=== PATIENT | male | born 1960 | race Caucasian/White ===

== ENCOUNTER 2019-07-14 23:00 | Inpatient (IN) ==
[~2019-07-14 23:00] MED LIST: DUONEB (A & A) INH ONE; MAGNESIUM SULFATE 1 GM/D5W 1 GM/100 ML IVPB IV ONE; SOLU-MEDROL IV ONE
--- NOTE | 2019-07-14 23:10 | PROVIDER DOCUMENTATION ---
This chart was entered by Hanny Santacruz Scribe, acting as scribe for Willard Shabazz MD. HPI-Respiratory General - General Chief Complaint: Shortness of Breath Stated Complaint: COPD SOB Time Seen by Provider: 07/14/19 22:49 Source: patient Allergies/Adverse Reactions: Patient Allergies Allergy/AdvReac Type Severity Reaction Status Date / Time codeine Allergy ITCHING Verified 07/14/19 22:56 levofloxacin [From Levaquin] Allergy RASH Verified 07/14/19 22:56 Penicillins Allergy ITCHING Verified 07/14/19 22:56 Home Medications: Home Medication List Medication Instructions Recorded Confirmed Last Taken Type Temazepam [Restoril] 30 mg PO HS PRN 11/25/14 07/15/19 11/24/14 History Albuterol [Albuterol Neb] 2.5 mg INH RTQ4H neb 10/24/17 07/15/19 Unknown Rx Azithromycin [Zithromax] 250 mg PO DAILY #6 tab 07/13/19 07/15/19 Unknown Rx Methylprednisolone [Medrol Dosepak] 4 mg PO DIRECTED #1 pkg 07/13/19 07/15/19 Unknown Rx Levothyroxine [Synthroid] 75 microgm PO DAILY 07/15/19 07/15/19 Unknown History - History of Present Illness-Resp Nature of Presenting Problem: pt is a 58 yr old male presenting via EMS with worsening 3 day complaint of shortness of breath, wheezing and chest tightness. pt was seen here for same yesterday, improvement noted with oxygen and breathing tx enroute by EMS Quality of Pain: reports: tightness Severity in ED: reports: moderate Onset/Duration: reports: 3 days ago Timing: reports: changing over time, getting worse Exposure: reports: unknown cause Cough Quality/Degree: reports: moderate Episode Frequency: frequent episodes Current Respiratory Medication Therapy: Initiated see nurses note Modifying Factors: improves with: albuterol nebulizer (improves), lying down (worsens), oxygen (improves) Associated Symptoms: reports: chest pain/soreness, cough, shortness of breath, wheezing. denies: fever/chills Similar Symptoms Previously?: Yes Recently seen or treated by another doctor?: Yes Review of Systems - Adult - REVIEW OF SYSTEMS - ADULT Constitutional: denies: see HPI, fever Eyes: reports: no symptoms reported Ears, Nose, Mouth & Throat: reports: no symptoms reported Cardiovascular: reports: chest pain. denies: palpitations, syncope Respiratory: reports: cough, dyspnea on exertion, pleurisy, shortness of breath, wheezing Gastrointestinal: denies: abdominal pain, nausea Genitourinary: reports: no symptoms reported Musculoskeletal: denies: back pain, joint pain, muscle aches Integumentary: reports: no symptoms reported Neurological: denies: dizziness/vertigo, headache/migraines, syncope Psychiatric: reports: no symptoms reported Endocrine: reports: no symptoms reported Hematologic/Lymphatic: reports: no symptoms reported Allergic/Immunologic: reports: no symptoms reported All Other Systems: Reviewed and Negative Past History - Adult - PAST MEDICAL HISTORY-ADULT Review of Records: reports: Old Records Reviewed, Nursing Assessment Review, Medications Reviewed, Social history reviewed & non-contributory. Major Childhood Illnesses: reports: denies history Cardiovascular: reports: denies history Respiratory: reports: COPD, pneumonia, tuberculosis Gastrointestinal: reports: denies history Obstetrical/Gynecological: reports: denies history Genitourinary: reports: denies history Musculoskeletal: reports: denies history Neurological: reports: denies history Endocrine/Immune: reports: denies history Other Conditions: reports: denies history - PRIOR SURGERIES/PROCEDURES Surgical/Procedure History: reports: none - PRIOR HOSPITALIZATIONS Prior Hospitalizations: reports: none - IMMUNIZATION STATUS Childhood Immunizations: UTD Flu Vaccine: See Nurse Assessment - FAMILY HISTORY Family History: reviewed, not pertinent - SOCIAL HISTORY Smoking: cigarettes Provider spent 3-5 mins advising pt. on dangers of tobacco.: Discussed manners to quit use, and f/u contacts for add'l counseling. Substance Use: alcohol Living Situation: alone Physical Exam-General - PHYSICAL EXAM-ADULT Initial Vital Signs Reviewed: Yes - CONSTITUTIONAL General Appearance: alert, no apparent distress - EYES Eyes: other (clear) - HEAD, EARS, NOSE, MOUTH & THROAT HENMT: moist mucous membranes - NECK Neck: supple - RESPIRATORY Respiratory: decreased breath sounds, wheezing - CARDIOVASCULAR Cardiovascular: regular rate, rhythm - GASTROINTESTINAL (ABDOMEN) Abdominal Exam: normal bowel sounds, non tender, soft - LYMPHATIC Lymphatic: no adenopathy - MUSCULOSKELETAL Back Exam: normal inspection, no CVA tenderness, no vertebral tenderness Extremity: normal range of motion, non-tender Peripheral Pulses: radial (R): 2+, radial (L): 2+ - SKIN Integumentary: normal color, normal turgor - NEUROLOGIC Neurologic: grossly normal - PSYCHIATRIC Psych/Mental Status: oriented x 3, anxious Progress - PLAN OF CARE/RESULTS Progress/Plan/Lab Results: Vital Signs - 8 hr 07/14/19 22:52 07/14/19 22:59 07/14/19 23:32 Temperature 97.8 F Pulse Rate 94 H 103 H Respiratory Rate 21 27 H Blood Pressure 161/114 O2 Sat by Pulse Oximetry 98 97 96 Laboratory Results - last 24 hr 07/14/19 07/14/19 07/14/19 22:50 23:00 23:00 WBC 13.55 H RBC 4.61 L Hgb 11.9 L Hct 37.5 L MCV 81.3 MCH 25.8 L MCHC 31.7 L RDW Std Deviation 16.0 H Plt Count 261 MPV 10.7 H Immature Gran % (Auto) 0.1 Neut % (Auto) 88.5 H Lymph % (Auto) 5.5 L [place] % (Auto) 5.8 Eos % (Auto) 0.0 Baso % (Auto) 0.1 Immature Gran # (Auto) 0.02 Neut # (Auto) 12.00 H Lymph # (Auto) 0.74 L [place] # (Auto) 0.78 H Eos # (Auto) 0.00 Baso # (Auto) 0.01 Specimen Type ARTERIAL Sample Site R BRACHIAL pH 7.34 L pCO2 61 H* pO2 73 HCO3 29.0 H Base Excess 5.4 H Oxyhemoglobin 91.8 L ABG O2 Sat (Calculated) 16.6 ABG O2 Saturation 96.6 ABG Carboxyhemoglobin 3.60 H ABG Methemoglobin 1.3 Narayan Test NO A-a O2 Difference 50.0 Total Hemoglobin 12.8 Lactate 0.90 Liter Flow 2.0 Blood Gas Modality CANNULA FiO2 % 28.0 Sodium Potassium Chloride Carbon Dioxide Anion Gap BUN Creatinine Estimated GFR/1.73 m2 BUN/Creatinine Ratio Glucose Calculated Osmolality Calcium Creatine Kinase Troponin T < 0.010 Rsl-P-Ermtaacoksm Pept 07/14/19 07/14/19 07/14/19 23:00 23:00 23:00 WBC RBC Hgb Hct MCV MCH MCHC RDW Std Deviation Plt Count MPV Immature Gran % (Auto) Neut % (Auto) Lymph % (Auto) [place] % (Auto) Eos % (Auto) Baso % (Auto) Immature Gran # (Auto) Neut # (Auto) Lymph # (Auto) [place] # (Auto) Eos # (Auto) Baso # (Auto) Specimen Type Sample Site pH pCO2 pO2 HCO3 Base Excess Oxyhemoglobin ABG O2 Sat (Calculated) ABG O2 Saturation ABG Carboxyhemoglobin ABG Methemoglobin Narayan Test A-a O2 Difference Total Hemoglobin Lactate Liter Flow Blood Gas Modality FiO2 % Sodium 134 L Potassium 4.8 Chloride 94 L Carbon Dioxide 29 Anion Gap 10 BUN 10 Creatinine 0.5 L Estimated GFR/1.73 m2 > 60 BUN/Creatinine Ratio 20 Glucose 141 H Calculated Osmolality 270 Calcium 9.2 Creatine Kinase 97 Troponin T Qty-S-Otpvhzfnuxq Pept 222 H Orders Category Date Time Status Admit - [facility] Routine AdmDCTranf 07/14/19 23:44 Active Activity - Strict Bedrest ORDERED Care 07/14/19 23:45 Active Resuscitation Status Routine Care 07/14/19 23:44 Ordered Vital Signs Order Q 4-HR ASSESS Care 07/14/19 23:45 Active Z-Document. for Tele Applied ORDERED Care 07/14/19 23:47 Completed Heart Healthy Diet Diet 07/14/19 23:45 Active CHEST-PORTABLE [RAD] Stat Exams 07/14/19 23:36 Taken ABG [RESP] Routine Lab 07/14/19 22:50 Completed BMP [BASIC METABOLIC PANEL] [CHEM] Stat Lab 07/14/19 23:00 Completed BNP [PRO B-NATRIURETIC PEPTIDE] Stat Lab 07/14/19 23:00 Completed CBC WITH ELECTRONIC DIFF [HEME] Stat Lab 07/14/19 23:00 Completed CK PROFILE [SP CHEM] Stat Lab 07/14/19 23:00 Completed TROPONIN T Stat Lab 07/14/19 23:00 Completed Albuterol 2.5MG/Ipratrop 0.5MG [Duoneb (A & A)] Med 07/14/19 22:54 Discontinued 3 ml INH NOW ONE Albuterol 2.5MG/Ipratrop 0.5MG [Duoneb (A & A)] Med 07/15/19 03:30 Active 3 ml INH RTQ4H CefTRIAXONE [Rocephin] 1 gm Med 07/14/19 23:42 Discontinued 0.9% Sodium Chloride Inj [Ns] 50 ml IV NOW Magnesium Sulfate 1 gm/D5w Med 07/14/19 22:57 Discontinued 1 gm in 100 ml IV NOW Methylprednisolone Sod Succ [Solu-Medrol] Med 07/14/19 22:55 Discontinued 125 mg IV NOW ONE Methylprednisolone Sod Succ [Solu-Medrol] Med 07/15/19 05:00 Active 125 mg IV Q6H Aerosol Treatments Routine Oth 07/14/19 22:54 Completed Aerosol Treatments Routine Oth 07/14/19 23:46 Active Aerosol Treatments Stat Oth 07/14/19 22:54 Completed Aerosol Treatments Stat Oth 07/14/19 23:46 Active Oxygen Device Stat Oth 07/14/19 22:57 Active Telemetry [OM.EQ] Routine Oth 07/14/19 23:47 Active EKG [EKG] Stat Ther 07/14/19 22:59 Ordered Transfer/Admit Order [TRANSFER] Routine Transfer 07/14/19 23:46 Completed Result Diagrams: 07/14/19 23:00 07/14/19 23:00 - REASSESSMENT Reassessment #1 Time Reassessed: 23:35 Status: other Reassessment Comment: continues to wheeze but some improvement - CONSULTS/PCP/HOSPITALIST Notification #1 *Consult/PCP/Hospitalist*: Dr. Schulte, hospitalist Time Discussed: 23:40 Consult Disposition: Admit Departure - Departure Date of Disposition Decision: 07/15/19 Time of Disposition Decision: 00:29 DIAGNOSIS: COPD exacerbation Disposition: ADMITTED INPATIENT 09 Certified Medical Emergency: Emergent Condition: Stable - Critical Care Note This patient required my direct & personal management of CC.: No Attestation - Physician/ LOYDA Attestation Patient care was provided by Advanced Practice Provider:: No The physician spent face to face time with patient:: Yes Advanced Practice Provider documentation review:: Supervising physician onsite and consulted in the evaluation and care of this patient. The physician did have a face to face encounter with the patient. This chart was documented by the indicated scribe, (Hanny Santacruz, Marlon) and accurately reflects the services I performed and decisions made by me, Willard Shabazz MD, as attested by the provider's signature.
[2019-07-14 23:15] LABS: BE 5.4 mmoll (-3.0-3.0); BLOOD TYPE ARTERIAL; METHB 1.3 % (0.0-1.5); O2(CT) 16.6 mL/dL (15.0-23.0); O2HB 91.8 % (95.0-99.0); PO2(98.6) 73 mmHg (60-100); SAMPLE BLOOD; SAO2 96.6 % (95.0-100.0); THB 12.8 g/dL (11.5-17.4); pH(98.6) 7.34 (7.35-7.45)
[2019-07-14 23:18] LABS: ALLEN TEST NO; MODALITY CANNULA; PCO2(98.6) 61 mmHg (35-45)
[2019-07-14 23:23] LABS: BASO# 0.01 X1000 (0.0-0.2); BASO% 0.1 % (0.0-0.8); HEMATOCRIT 37.5 % (42.0-52.0); HEMOGLOBIN 11.9 g/dL (14.0-18.0); IMM GRAN# 0.02 X1000 (0.0-0.04); IMM GRAN% 0.1 % (0.0-0.5); LYMPH# 0.74 X1000 (1.2-3.4); LYMPH% 5.5 % (20.5-51.1); MCH 25.8 PG (27-31); MCHC 31.7 g/dL (33-37); MCV 81.3 FL (81-99); MONO# 0.78 X1000 (0.11-0.59); MONO% 5.8 % (1.7-9.3); MPV 10.7 FL (7.4-10.4); NEUT% 88.5 % (42.2-75.2); PLT 261 X1000 (130-400); RBC 4.61 XMIL (4.7-6.1); WBC 13.55 X1000 (4.8-10.8)
[2019-07-14 23:33] LABS: AGAP 10; BUN 10 mg/dL (8-22); CALCIUM 9.2 mg/dL (8.8-10.2); CHLORIDE 94 mmol/L (98-107); COSMO 270; CREATININE 0.5 mg/dL (0.7-1.2); ESTIMATED GFR > 60; GLUCOSE 141 mg/dL (70-104); POTASSIUM 4.8 mmol/L (3.5-5.1); SODIUM 134 mmol/L (136-145); TCO2 29 mmol/L (25-35)
[2019-07-14] MEDS ORDERED: ROCEPHIN 1 GM in NS 50 ML IV ONE (23:42)
[2019-07-15] MEDS ORDERED: FLU VACCINE IM ONE (01:20)
[2019-07-15] MEDS ORDERED: PNEUMOVAX 23 IM ONE (01:21)
[2019-07-15] MEDS: DUONEB (A & A) INH SCH ×6 (04:35→23:32)
[2019-07-15] MEDS ORDERED: SOLU-MEDROL IV SCH (05:00)
--- NOTE | 2019-07-15 06:07 | EKG Report ---
Test Performed on : 07/15/2019 05:32:50 AM Test Reason : pain Blood Pressure : / mmHG Vent. Rate : 086 BPM Atrial Rate : 086 BPM P-R Int : 150 ms QRS Dur : 074 ms QT Int : 368 ms P-R-T Axes : 089 088 088 degrees QTc Int : 440 ms Sinus rhythm. with premature atrial complexes. Anterolateral infarct (cited on or before 19-JAN-2017) Abnormal ECG When compared with ECG of 07-OCT-2017 12:41, premature atrial complexes. are now present Questionable change in QRS duration Questionable change in initial forces of Anterior leads Confirmed by Kenan Munoz MD ([id number]) on 07/22/2019 7:52:21 AM
--- NOTE | 2019-07-15 08:12 | Diag Imaging Result Doc PS360 ---
EXAM: CHEST-PORTABLE - 07/14/2019 HISTORY: sob TECHNIQUE: Portable chest COMPARISON: 07/13/2019 FINDINGS: The projection is somewhat lordotic. Heart size is normal. There are emphysematous changes. There is severe bilateral upper lobe scarring with upward retraction of the edelmira. There are multiple calcifications consistent with old granulomatous disease. There is no discrete acute consolidation, vascular congestion, pleural effusion, or pneumothorax identified. IMPRESSION: Emphysema. Severe bilateral upper lobe scarring. No discrete acute changes. Electronically signed by Avery Martini 07/15/2019 8:10 AM
[2019-07-15] MEDS ORDERED: DUONEB (A & A) INH PRN (09:09)
--- NOTE | 2019-07-15 11:37 | HISTORY AND PHYSICAL ---
I saw the patient [id number], and fully agree with the assessment and plan of nurse practitioner, Mila Barrios. This is a 58-year-old gentleman who came into the emergency room with complaint of having shortness of breath. He has history of pulmonary fibrosis and advanced COPD with supplemental oxygen at home. He also has hypothyroidism. We are going to admit the patient here at the hospital, and give him IV Solu-Medrol along with nebulization treatments with albuterol and ipratropium bromide. We will continue his routine home medications, including azithromycin 250 mg orally once daily, and levothyroxine 75 mcg orally once daily. Will provide him supportive care, and follow hospital course. cc: Topher Schulte MD
[2019-07-15] MEDS: ZITHROMAX PO SCH (11:48)
[2019-07-15] MEDS: TYLENOL PO PRN (11:48)
[2019-07-15] MEDS: SOLU-MEDROL IV SCH ×2 (11:48→21:00)
--- NOTE | 2019-07-15 13:19 | HISTORY AND PHYSICAL ---
CHIEF COMPLAINT: Shortness of breath. HISTORY OF PRESENT ILLNESS: This is a 58-year-old gentleman with a history of COPD, pulmonary fibrosis, hypothyroid, who presented to the emergency room complaining of increasing shortness of breath for 4 days now. He was evaluated in the emergency room on 07/14/2019 for the same symptoms. He was given breathing treatments en route by EMS. He states that symptoms are pretty improved. He was discharged home with a steroid Dosepak and with a Z-Deyvi, which he did not fill. He comes back today complaining of worsening symptoms and was found to be in a COPD exacerbation and is being admitted for such. PAST MEDICAL HISTORY: 1. Chronic obstructive pulmonary disease. 2. Pulmonary fibrosis. 3. Hypothyroid. 4. TB in 2001 or 2002, treated at [facility] with a negative QuantiFERON gold test in 2014. PAST SURGICAL HISTORY: None. SOCIAL HISTORY: He continues to smoke. He drinks beer occasionally on a social basis. He denies any illicit drug use. ALLERGIES: Codeine, Levaquin, and penicillin. HOME MEDICATIONS: A list will be obtained by the nursing staff and once verified, will review and restart as appropriate. REVIEW OF SYSTEMS: Discussed with patient with pertinent positives stated in the HPI. He denied any syncope or dizziness, any chest pain or palpitations, any fevers or chills, a productive cough, any nausea, vomiting, diarrhea, constipation, black or bloody vomitus or stools, hematuria, dysuria, frequency, urgency. PHYSICAL EXAMINATION: GENERAL: This is a 58-year-old gentleman who is sitting up at the bedside, in no distress. VITAL SIGNS: Blood pressure is 149/70, with a heart rate of 92, respirations are 20, temperature is 98.2 degrees oral, with O2 saturation 98% to 99% on high-flow O2. HEENT: Head is normocephalic, atraumatic. Mucous membranes are moist. NECK: Supple. Trachea midline. CARDIOVASCULAR: Regular rate and rhythm. S1 and S2 appreciated. No murmur. Calves are nontender bilaterally. No lower extremity edema. Peripheral pulses are palpable x4 extremities. PULMONARY: Breath sounds are diminished throughout with scattered wheezes throughout, prolonged expiration. Chest rises and falls symmetric with respiration. Chest wall is nontender to palpation. GASTROINTESTINAL: Abdomen is soft, nontender, nondistended. Bowel sounds in all 4 quadrants. NEUROLOGIC: He is alert oriented x3. SKIN: Warm and dry. LABS: WBC is 13.5, with hemoglobin 11.9, hematocrit 37.5, and platelets of 261,000. Sodium 134, potassium 4.8, BUN 10, creatinine 0.5. With a glucose of 141. ABGs show pH is 7.3 with pCO2 61, PO2 73, and bicarb 29. These are on 2 L nasal cannula. Chest x-ray revealed emphysema with severe bilateral upper lobe scarring. ASSESSMENT AND PLAN: 1. Chronic obstructive pulmonary disease acute exacerbation. 2. Acute hypercapnic respiratory failure. 3. History of pulmonary fibrosis. 4. Hypothyroid. 5. History of TB with a negative QuantiFERON gold test in 2014. PLAN: The patient has been admitted to the medical-surgical floor and placed on telemetry which will continue. We will continue with supplemental high-flow O2 with DuoNebs q.4 hours and q.2 hours p.r.n. We will continue the Zithromax for antibiotic coverage, and further antibiotics will be culture driven. Identify his home medications and continue as appropriate. We will continue steroids to taper. Plan was discussed with Dr. Schulte. Further treatments pending hospital course. Dictated by KYLE Paz for Topher Schulte MD cc: KYLE Paz MD
[2019-07-15] MEDS: RESTORIL PO PRN (21:00)
[2019-07-16] MEDS: TYLENOL PO PRN ×2 (02:24→20:49)
[2019-07-16] MEDS: DUONEB (A & A) INH SCH ×6 (04:18→23:05)
[2019-07-16] MEDS: SOLU-MEDROL IV SCH ×3 (04:35→20:47)
[2019-07-16] MEDS: SYNTHROID PO SCH (06:51)
[2019-07-16] MEDS: ROCEPHIN 1 GM in NS 50 ML IV SCH (10:02)
[2019-07-16] MEDS: ZITHROMAX PO SCH (10:02)
[2019-07-16] MEDS: RESTORIL PO PRN (22:06)
--- NOTE | 2019-07-16 22:57 | PROGRESS NOTE ---
DATE: 07/16/2019 SUBJECTIVE: The patient notes that he is feeling better, still having cough, congestion and shortness of breath. Denies any fevers, chills. OBJECTIVE: Vital signs: Temperature 98, pulse 74, respiratory rate 18, BP 145/77. General: Patient is currently in mild respiratory distress. He is very pleasant to talk with. HEENT: Normocephalic. Neck: Supple. Cardiovascular: Regular rate. Chest: Decreased but equal breath sounds. Positive wheezing throughout, somewhat harsh. Abdomen: Soft, nondistended. Extremities: Moves all extremities. Neurologic: No changes. ASSESSMENT: 1. Chronic obstructive pulmonary disease with exacerbation. 2. Acute hypoxic hypercapnic respiratory failure. 3. History of pulmonary fibrosis. 4. Hypothyroidism. 5. History of tuberculosis with a negative QuantiFERON Gold Test in 2014. PLAN: We will continue patient on Zithromax, DuoNeb, oxygen high-flow. He is on Solu-Medrol 60 IV q.8, and we will follow. cc: Orlando Bravo MD
[2019-07-17] MEDS: DUONEB (A & A) INH SCH ×6 (03:13→23:30)
[2019-07-17] MEDS: SOLU-MEDROL IV SCH ×3 (05:08→20:13)
[2019-07-17] MEDS: ROCEPHIN 1 GM in NS 50 ML IV SCH (06:32)
[2019-07-17] MEDS: SYNTHROID PO SCH (06:32)
[2019-07-17] MEDS: ZITHROMAX PO SCH (08:32)
[2019-07-17 11:41] LABS: BE 13.3 mmoll (-3.0-3.0); BLOOD TYPE ARTERIAL; HCO3-(ACT) 35.2 mmoll (20.0-26.0); METHB 1.4 % (0.0-1.5); O2(CT) 16.7 mL/dL (15.0-23.0); O2HB 94.7 % (95.0-99.0); PO2(98.6) 82 mmHg (60-100); SAMPLE BLOOD; SAO2 98.4 % (95.0-100.0); THB 12.5 g/dL (11.5-17.4); pH(98.6) 7.38 (7.35-7.45)
[2019-07-17 11:41] LABS: BASO# 0.01 X1000 (0.0-0.2); BASO% 0.1 % (0.0-0.8); HEMATOCRIT 38.1 % (42.0-52.0); HEMOGLOBIN 11.7 g/dL (14.0-18.0); IMM GRAN# 0.03 X1000 (0.0-0.04); IMM GRAN% 0.3 % (0.0-0.5); LYMPH# 0.71 X1000 (1.2-3.4); LYMPH% 6.1 % (20.5-51.1); MCH 25.4 PG (27-31); MCHC 30.7 g/dL (33-37); MCV 82.8 FL (81-99); MONO# 1.67 X1000 (0.11-0.59); MONO% 14.2 % (1.7-9.3); MPV 10.7 FL (7.4-10.4); NEUT# 9.31 X1000 (1.4-6.5); NEUT% 79.3 % (42.2-75.2); PLT 260 X1000 (130-400); RDW 16.2 % (11.5-14.5); WBC 11.73 X1000 (4.8-10.8)
--- NOTE | 2019-07-17 11:48 | PROGRESS NOTE ---
DATE: 07/17/2019 SUBJECTIVE: The patient is fine at rest but once he tried to sit up in the bed or try to even walk in the room, he got very short of breath. Now he is currently using OptiFlow. OBJECTIVE: Vital Signs: Temperature 97.5 degrees, heart rate 81, respiratory rate 20, blood pressure 128/76, O2 saturation 96% on high-flow nasal cannula. General: This is a chronically ill-appearing, malnourished, 58-year-old male, lying in bed, in no acute distress. Cardiovascular: S1, S2 heard. Tachycardic. No murmurs, gallops, or rubs. Regular rate and rhythm. Respiratory: Decreased breath sounds globally with scattered wheezing in both pulmonary gonzalez. Prolonged expiration. Patient is not using any accessory muscles or having work of breathing. Abdomen: Soft, nontender to palpation. Bowel sounds present. No organomegaly. Extremities: No clubbing, cyanosis, or edema. Peripheral pulses present in both legs. Neurological: Patient is alert and oriented x3. Moves 4 extremities. LABORATORY DATA: Those are still pending at the time of my dictation. ASSESSMENT AND PLAN: 1. Acute hypoxemic respiratory failure secondary to chronic obstructive pulmonary disease exacerbation. This patient at home used 2 L of oxygen by nasal cannula. Now, he is requiring OptiFlow and he is still feeling short of breath. Considering his long history of chronic obstructive pulmonary disease and to have a better idea of the lung anatomy, we will do a CT of the thorax with contrast. The patient is receiving DuoNeb every 4 hours scheduled, ceftriaxone, azithromycin and on Solu-Medrol. Considering that this patient is not getting better and requiring a high amount of oxygen, my plan is to send this patient to [facility] and send him to the PVC unit, consult Pulmonary and we will go from there. 2. History of pulmonary fibrosis, aware. We will continue with current management. 3. Hypothyroidism. We will continue with home doses of levothyroxine. 4. History of tuberculosis with negative QuantiFERON gold in 2014, aware. 5. Disposition. The patient is being transferred to [facility]. Pulmonary will be consulted. cc: Sim Ramirez MD
[2019-07-17 11:50] LABS: AGAP 8; BUN 18 mg/dL (8-22); CALCIUM 9.1 mg/dL (8.8-10.2); CHLORIDE 91 mmol/L (98-107); COSMO 267; CREATININE 0.4 mg/dL (0.7-1.2); ESTIMATED GFR > 60; GLUCOSE 109 mg/dL (70-104); POTASSIUM 4.9 mmol/L (3.5-5.1); SODIUM 132 mmol/L (136-145); TCO2 34 mmol/L (25-35)
[2019-07-17 12:22] LABS: MODALITY HIGH FLOW NASAL CAN; PCO2(98.6) 70 mmHg (35-45)
[2019-07-17 12:28] LABS: ALLEN TEST NO
[2019-07-17 12:37] LABS: LYMPHS 10 % (21-51); MONO 12 % (1-9); SEGS 78 % (42-75)
[2019-07-17 12:38] LABS: ANISOCYTOSIS 1+
--- NOTE | 2019-07-17 15:28 | Diag Imaging Result Doc PS360 ---
CT ANGIOGRM PULMONARY ARTERIES - 07/17/2019 INDICATION: sob TECHNIQUE: Axial CT images were obtained after administering intravenous contrast. Coronal MIP images were generated. COMPARISON: 10/17/2017 FINDINGS: There is no pulmonary embolism. No adenopathy. Heart and great vessels are normal. There is end-stage COPD. There is severe biapical pulmonary scarring stable from prior. No infiltrates. No pneumothorax or pleural effusion. There are moderate degenerative changes of the spine. No acute or suspicious bony lesion. IMPRESSION: End-stage COPD with pulmonary scarring. No acute process. This exam was performed using automated exposure control, adjustment of mA or kV according to patient size, and/or use of iterative reconstruction technique Electronically signed by Goyo Green 07/17/2019 3:25 PM
[2019-07-17] MEDS ORDERED: NICODERM PATCH TD ONE (15:53)
--- NOTE | 2019-07-17 17:14 | HISTORY AND PHYSICAL ---
PATIENT WAS TRANSFERRED FROM [facility] A 58 -YEAR-OLD PATIENT OF DR. CALOS DE SOUZA.: Patient presented for 2-week history of increased shortness of breath and dyspnea. He has a long history of COPD. He does have oxygen he has had for several years. He still smokes about 8 to 10 cigarettes a day. He used to smoke about 3 packs a day. 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 He has a history of primary hypothyroidism. He presented to the emergency room with shortness of breath, which he said was going on for 2 weeks. On 07/14/2019 he was evaluated the emergency room as well for similar symptoms. His symptoms have of have improved very little. He can only walk about 100 feet and has to rest. They gave a steroid Dosepak and a Z-Deyvi. He said that the mucus seems to be thick, a lot of congestion in his sinuses. He denies fever chills denies orthopnea or paroxysmal nocturnal dyspnea. So, was admitted with a COPD exacerbation. PAST MEDICAL HISTORY: 1. COPD, oxygen dependent, chronic hypoxia. 2. Pulmonary fibrosis. 3. Hypothyroidism. 4. Had TB in 2001 and was treated at [facility]. Negative QuantiFERON gold test in 2015. PAST SURGICAL HISTORY: No surgeries. ALLERGIES: Codeine, Levaquin, and penicillin. When he got Levaquin apparently he felt itching and burning and an instantaneous erythematous rash which resolved with some Benadryl. REVIEW OF SYSTEMS: General: He has lost weight over the last year. He used to be 128. He is down to 110. He is eating. States that his appetite has been good. HEENT: Does not report any change in vision or hearing acuity. Neck: No neck pain. No adenopathy that he has appreciated. Cardiovascular: No chest pain or tachy palpitation. GI/: No change in bowel or urination. Endocrinologic/hemologic: No significant history other than history of primary hypothyroidism. Musculoskeletal/Neurologic: No focal complaints. PHYSICAL EXAMINATION: Temperature 98.1 degrees, pulse 85, respirations 22, blood pressure 132/83 pupils are equal round. LUNGS: Clear in all lung gonzalez. CARDIOVASCULAR: Regular rhythm and rate without murmur or S3. ABDOMEN: Soft. SKIN: Warm and dry. DATA: Urine output is 2600 mL. His chest x-ray shows end-stage COPD, pulmonary scarring. Sodium 132, potassium 4.9, chloride 91, BUN 18, creatinine 0.4, calcium was 9.1. White blood cell count yesterday was 13,000 today is 11,730. Hematocrit 38, hemoglobin 11, platelet count 260,000. He had a pulmonary arteriogram which showed end-stage COPD, pulmonary scarring. No other acute process seen. Chronic obstructive pulmonary disease , chronic hypoxemia. His blood gas when he came in was pH was 7.34, pCO2 61, PO2 73, O2 saturation was 96% on 2 L of 28% FiO2. He is on 30% FiO2. Blood gases today, pH is 7.38, pCO2 of 70, PO2 was 82, O2 saturation was 98%. ASSESSMENT AND PLAN: 1. Chronic obstructive pulmonary disease, appears to be end-stage chronic obstructive pulmonary disease with pulmonary fibrosis or an element of pulmonary fibrosis and I suspect chronic hypoxemia, chronic hypercarbia as well so we are going to see if we can try and improve his gas exchange. He has thick mucus secretions. We will make sure he is on guaifenesin to thin these out. Give him albuterol and Atrovent inhaler treatment as well as steroid inhaled treatment. His volume status looks good. I am not sure if he has ever had an echocardiogram. It might be worthwhile to look at his left ventricular function. I see an echocardiogram from September 2017. At that time normal left ventricular dimension. Ejection fraction was Ali 70%. There appeared to be a 1 x 1.5 cm mass adherent to the anterior mitral leaflet, mild anterior mitral leaflet prolapse at that time, there was mild to moderate mitral regurgitation, trace tricuspid regurgitation. No pericardial effusion. So, we will get an echocardiogram and look at his right-sided pressures as well, look at his valvular function. 2. He got the Pneumovax vaccination. 3. He is on methylprednisone 60 mg IV q.8. He got ceftriaxone 1 g IV q.24 hours, Synthroid his normal dose at 75 mcg p.o. daily. 4. We will give him a nicotine patch. We will give him a steroid inhaler and guaifenesin. cc: Narayan Damon MD
[2019-07-17] MEDS: SYMBICORT 80/4.5 MICROGM INHALER INH SCH (20:10)
[2019-07-17] MEDS: MUCINEX PO SCH (20:13)
[2019-07-17] MEDS: TYLENOL PO PRN (22:03)
[2019-07-17] MEDS: RESTORIL PO PRN (22:03)
--- NOTE | 2019-07-17 22:33 | PULMONOLOGY CONSULTATION ---
DATE: 07/17/2019 REQUESTING CLINICIAN: Dr. Narayan Damon. REASON FOR CONSULTATION: Respiratory failure. HISTORY OF PRESENT ILLNESS: Mr. Brown is a 58-year-old white male with prior history of tuberculosis, end-stage COPD, ongoing tobacco use, who was evaluated in the emergency room 07/14/2019 with increasing shortness of breath and wheezing. Chest x-ray revealed no acute changes. Arterial blood gas revealed acute hypercapnic respiratory failure with a pH of 7.34, pCO2 of 61, and a PO2 of 73. The patient has been initiated on antibiotics, steroids, and nebulizer treatments with some clinical improvement. PAST MEDICAL HISTORY: 1. Severe COPD with ongoing tobacco use. 2. History of tuberculosis in 2001 or 2002, with treatment by the [facility]. The patient had negative QuantiFERON gold in 2014. 3. Severe COPD clinically and radiographically. 4. Hypothyroidism. 5. Arthritis. SOCIAL HISTORY: The patient is disabled. The patient reports he has decreased his tobacco use to 4 to 5 cigarettes per day. Prior history of cocaine use. Occasional alcohol use. FAMILY HISTORY: Positive for COPD. REVIEW OF SYSTEMS: Notable for ongoing weight loss despite good caloric intake. PHYSICAL EXAMINATION: General: Reveals a frail, chronically ill-appearing male with a BMI of 13.8. Vital signs: BP 138/77, heart rate 91, respiratory rate 20, oxygen saturation 98% on 4 L per nasal cannula. HEENT: Pupils are equal and reactive. Oropharynx appears clear. Neck: Supple. Chest: Reveals significant decrease in subcutaneous tissue and chest wall musculature. The patient has prolonged expiratory phase with faint distant wheezing. Cardiac: S1, S2. Abdomen: Soft. Extremities: Without edema. IMPRESSION: A 58-year-old with 1. End-stage chronic obstructive pulmonary disease. 2. Acute hypercapnic respiratory failure. 3. Chronic hypoxemic respiratory failure. 4. Ongoing tobacco use. 5. Pulmonary cachexia. DISCUSSION: A 58-year-old with problems outlined above. The patient continues to lose weight over the last several years. This most likely is due to pulmonary cachexia. The patient had a CT scan of the thorax which revealed apical scarring, likely related to his prior tuberculosis along with diffuse advanced emphysematous changes. The patient's prognosis is poor at the age of 58 given his advanced lung disease. He would benefit from a lung transplantation, if he was deemed a candidate. However, he will not be deemed a candidate with ongoing tobacco use. RECOMMENDATIONS: 1. Continue treatment for COPD exacerbation as you are doing. 2. Cycle BiPAP if needed for hypercapnic respiratory failure. 3. Encourage smoking cessation. 4. Consider referral to a Pulmonary Transplant Center after patient has been tobacco free for 1 year. cc: Leander Francis MD
[2019-07-18] MEDS: DUONEB (A & A) INH SCH ×6 (02:30→23:27)
[2019-07-18] MEDS: SOLU-MEDROL IV SCH ×3 (03:40→20:54)
[2019-07-18] MEDS: ROCEPHIN 1 GM in NS 50 ML IV SCH (06:20)
[2019-07-18] MEDS: SYNTHROID PO SCH (06:20)
[2019-07-18 06:32] LABS: FREE T4 0.83 ng/dL (0.93-1.70); TSH 0.2 uIUmL (0.27-4.20)
[2019-07-18] MEDS ORDERED: NON-FORMULARY BULK MED INH SCH (07:30)
[2019-07-18] MEDS: SYMBICORT 80/4.5 MICROGM INHALER INH SCH ×2 (07:48→20:11)
[2019-07-18] MEDS: ZITHROMAX PO SCH (08:31)
[2019-07-18] MEDS: MUCINEX PO SCH ×2 (08:31→20:54)
[2019-07-18] MEDS: NICODERM PATCH TD SCH (16:53)
--- NOTE | 2019-07-18 16:54 | ECHO REPORT ---
ORDER DATE: 07/18/2019 INTERPRETING PHYSICIAN: Akash Jeff MD. CLINICAL INDICATIONS: Dyspnea and COPD. M-MODE MEASUREMENTS: Left ventricle end diastole: 3.9 cm. Left ventricle end systole: 2.7 cm. Posterior wall: 0.9 cm. Interventricular septum: 0.9 cm. Left atrium: 2.3 cm. Aortic diameter: 3.3 cm. SUMMARY OF 2-DIMENSIONAL IMAGING: The study is difficult. 1. Left ventricular function is excellent, ejection fraction of 70%. There is no wall motion abnormality. 2. The aortic valve looks normal. Color flow mapping unremarkable. 3. The right-sided chambers appear to be normal. 4. The pulmonic valve is unremarkable. 5. The tricuspid valve also appears to be grossly unremarkable. There is mild degree of tricuspid regurgitation. 6 .The mitral valve is abnormal. There is thickening of the anterior leaflet of the mitral valve with question of prolapse. There is probably a moderate degree of mitral regurgitation, although estimation is really difficult due to the poor acoustic windows. It could actually be moderate to severe. 7. The pulsed wave Doppler of the mitral inflow is "normal." 8. The tissue Doppler of the septal and lateral mitral annulus averages 8 cm. 9. There is no diastolic dysfunction. 10.The study shows no evidence of pericardial effusion, no mass, and no thrombus. CONCLUSION: In summary, this echocardiographic study is difficult. There is excellent left ventricular systolic function. There is mild degree of pulmonary hypertension estimated at 36 mmHg. 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 There is moderately severe degree of mitral regurgitation. No diastolic dysfunction. Clinical correlation is recommended. cc: MD Narayan Werner MD
--- NOTE | 2019-07-18 17:55 | PROGRESS NOTE ---
DATE: 07/18/2019 SUBJECTIVE: Mr. Brown is definitely breathing better, feels better. He remains afebrile. OBJECTIVE: Vital signs: Temperature 98.0 degrees, pulse 90, respirations 17, blood pressure 152/102. HEENT: Pupils are equal and round. Lungs: Clear in all lung gonzalez. Cardiovascular: Regular rhythm and rate without murmur or S3. Abdomen: Soft. Skin: Warm and dry. DIAGNOSTIC STUDIES: We did get an echocardiogram. In summary, it was a difficult study. He has excellent left ventricular systolic function. There is a mild degree of pulmonary hypertension estimated at 36 mmHg. 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 ASSESSMENT AND PLAN: His breathing is better. Dr. Francis has evaluated and felt he had end-stage chronic obstructive pulmonary disease, acute hypercapnic respiratory failure, chronic hypercapnic respiratory failure, ongoing tobacco use, and pulmonary cachexia. He has continued to lose weight over the last several years, most likely due to pulmonary cachexia. CT scan of the thorax has revealed apical scarring, likely related to prior tuberculosis along with diffuse advanced emphysematous changes. He would benefit from a lung transplant if he was deemed a candidate. However, he still has ongoing tobacco use. Encouraged smoking cessation. He is on a nicotine patch. Hopefully can discharge him home soon. cc: Narayan Damon MD
[2019-07-18] MEDS: TYLENOL PO PRN (19:03)
--- NOTE | 2019-07-18 22:19 | PULMONOLOGY PROGRESS NOTE ---
DATE: 07/18/2019 SUBJECTIVE: The patient is awake, alert, and conversant. He reports he has had a pretty good day. His shortness of breath has diminished. Echocardiogram was attempted earlier today but there was a poor window. OBJECTIVE: Vital signs: The patient has been afebrile for the last 24 hours. Blood pressure 152/102, respiratory rate 90%, oxygen saturation 99% on 4 L per nasal cannula. HEENT: Pupils are equal and reactive. Oropharynx appears clear. Neck: Is supple. Chest: Reveals markedly diminished breath sounds bilaterally with faint distant wheezing. Cardiac exam: S1, S2. Abdomen: Is soft. Extremities: Without edema. LABORATORIES: No new laboratory data. IMPRESSION: A 58-year-old with 1. End-stage chronic obstructive pulmonary disease. 2. Acute hypercapnic respiratory failure. 3. Chronic hypoxemic respiratory failure. 4. Pulmonary cachexia. 5. Ongoing tobacco use. RECOMMENDATION: 1. Continue current treatment for chronic obstructive pulmonary disease. Anticipate discharge home soon. 2. Cycle BiPAP if needed for hypercapnic respiratory failure. 3. Encourage smoking cessation. 4. Consider pulmonary transplant evaluation with smoking cessation. cc: Leander Francis MD
[2019-07-18] MEDS ORDERED: RESTORIL PO PRN (23:36)
[2019-07-19] MEDS: SOLU-MEDROL IV SCH ×2 (04:59→13:09)
[2019-07-19] MEDS: DUONEB (A & A) INH SCH ×3 (05:25→11:49)
[2019-07-19] MEDS: ROCEPHIN 1 GM in NS 50 ML IV SCH (06:04)
[2019-07-19] MEDS: SYNTHROID PO SCH (06:04)
[2019-07-19] MEDS: NICODERM PATCH TD SCH (07:59)
[2019-07-19] MEDS: MUCINEX PO SCH (07:59)
[2019-07-19] MEDS: SYMBICORT 80/4.5 MICROGM INHALER INH SCH (08:00)
--- NOTE | 2019-07-19 09:54 | DISCHARGE SUMMARY ---
ADMISSION DATE: 07/18/2019 DISCHARGE DATE: 07/19/2019 HISTORY: Mr. Brown is a 58-year-old patient of Dr. Salvador Chapman has 2-week history of increased shortness of breath and dyspnea. He has a long history of COPD. He does have oxygen at home. He has had it for several years. He still smokes about 8 to 10 cigarettes a day. He has cut down from 3 packs a day. He has a long history of working in dust environments, worked for [employer], work for [employer], I think worked with aluminum, history of primary hypothyroidism presented to the emergency room with shortness of breath. This has gone on for a couple weeks to seemed to be worse, thick sputum. He was started on a Z-Deyvi, azithromycin and he felt like he had a lot of drainage and congestion in his sinuses. PAST MEDICAL HISTORY: 1. COPD. 2. Oxygen-dependent chronic hypoxemia. 3. Pulmonary fibrosis. 4. Hypothyroidism. 5. Had TB in 2001 treated [facility]. Had a negative QuantiFERON gold test in 2014. No surgeries. ADMISSION DIAGNOSES: Chronic obstructive pulmonary disease with exacerbation. Appears he has endstage chronic obstructive pulmonary disease with some pulmonary fibrosis as well. He has also lost quite a bit of weight in the last couple years consistent with chronic obstructive pulmonary disease cachexia and thick mucus drainage. He has had his Pneumovax vaccination, put on methylprednisone bronchodilator, steroid inhalers and he showed improvement. He was evaluated by Dr. Francis felt he had end-stage chronic obstructive pulmonary disease, acute hypercapnic respiratory failure, chronic hypoxic respiratory failure, ongoing tobacco use, pulmonary cachexia. HOSPITAL COURSE: Patient continues to lose weight last several years due to pulmonary cachexia. CT of the thorax revealed apical scarring, likely related to prior to tuberculosis along with diffuse advanced emphysematous changes. Prognosis is poor. Dr. Francis talked about smoking cessation and possibly looking into Pulmonary Transplant Center. He can do cyclic BiPAP if needed for hypercapnic respiratory failure. He would like to go home. So I will discharge him home on his home medication. MEDICATIONS: 1. We will keep him on trilogy. 2. Ellipta 62.5- 25 1 puff daily. 3. Keep him on the Symbicort as well 80-4.5 one puff b.i.d. 4. Mucinex 1200 mg p.o. q.12 5. Synthroid 75 mcg a day. 6. I will give him a Medrol Dosepak. He was on Solu-Medrol. 7. Continue his NicoDerm patch 21 mg daily. Gave him enough for 4 weeks and refills. 8. He has Restoril 30 mg at bedtime p.r.n. for sleep. 9. At home he has albuterol inhaler. He can continue that as needed. He has the trilogy already. He is on Synthroid 75 mcg a day. cc: Narayan Damon MD
[2019-07-19 12:37] VITALS: BP 98/77
[2019-07-19] MEDS ORDERED: RESTORIL PO PRN (21:00)
== END 2019-07-19 14:59 | disposition home or self-care (01) | DRG 190 ==
LOC: P.ED 23:00 → SUATTDRO 23:44 → P.MEDSURG 07-15 00:26 → SUATTDRO 07-15 00:26 → INTOOBSV 07-15 00:26 → 2N 07-17 13:50
PROVIDERS: ATTEND Emergency Medicine